=== PATIENT | female | born 1955 | race Caucasian/White ===

== ENCOUNTER 2021-04-01 07:54 | Outpatient (CLI) | payer MEDICARE, OTHER | END 2021-04-01 07:55 | disposition home or self-care (01) | LOC: BICRAD 07:54 | PROVIDERS: ATTEND Internal Medicine Critical Care Medicine | DX: R06.00 Dyspnea, unspecified (principal); J44.9 Chronic obstructive pulmonary disease, unspecified | CPT/HCPCS: 71046 ==

== ENCOUNTER 2021-09-01 10:03 | Outpatient (CLI) | payer MEDICARE, OTHER | END 2021-09-01 10:04 | disposition home or self-care (01) | LOC: RAD 10:03 | PROVIDERS: ATTEND Internal Medicine Critical Care Medicine | DX: R06.00 Dyspnea, unspecified (principal) | CPT/HCPCS: 71046 ==